=== PATIENT | male | born 1940 | race Caucasian/White ===

== ENCOUNTER 2018-12-06 02:53 | Inpatient (IN) | payer OTHER ==
[2018-12-06] MEDS: ALBUTEROL 0.083% (NEB) 2.5 MG/3 ML AMP INH (03:23)
[2018-12-06 03:57] LABS: ADD MAN DIFF? NO
[2018-12-06 03:59] LABS: WHITE BLOOD COUNT 7.8 10^3/ul (4.8-10.8)
[2018-12-06 03:59] LABS: BASOPHILS % 0.1 % (0.0-2.0); EOSINOPHILS # 0.1 10^3/ul (0.0-0.5); EOSINOPHILS % 1.5 % (0.0-7.0); HEMATOCRIT 28.5 % (42.0-52.0); HEMOGLOBIN 8.9 g/dl (14.0-18.0); LYMPHOCYTES # 0.8 10^3/ul (0.8-2.9); LYMPHOCYTES % 9.7 % (15.0-51.0); MEAN CORPUSCULAR HEMOGLOBIN 30.8 pg (29.0-33.0); MEAN CORPUSCULAR HGB CONC 31.2 g/dl (32.0-37.0); MEAN CORPUSCULAR VOLUME 98.6 fl (82.0-101.0); MONOCYTE # 0.5 10^3/ul (0.3-0.9); MONOCYTES % 6.8 % (0.0-11.0); NEUTROPHIL # 6.3 10^3/ul (1.6-7.5); NEUTROPHILS % 80.9 % (39.0-77.0); PLATELET COUNT 198 10^3/UL (140-415); RED BLOOD COUNT 2.89 10^6/ul (4.70-6.10); RED CELL DISTRIBUTION WIDTH 18.8 % (11.5-14.5)
[2018-12-06 04:03] LABS: MODE NASAL CANNULA; MetHgb Venous 0.2 %; Sample Type Blood venous; Site VENOUS LINE; Venous COHb 1.5 %; Venous Fraction OxyHgb 59.8 %; Venous Oxygen Sat 60.8 mmHG (55.0-75.0); Venous Total Hemglobin 10.2 g/dl
[2018-12-06] MEDS: SOD CHLORIDE 0.9% 500 ML IV (04:12)
[2018-12-06 04:18] LABS: ALANINE AMINOTRANSFERASE 88 IU/L (13-69); ALBUMIN 3.3 g/dl (3.3-4.9); ALKALINE PHOSPHATASE 90 IU/L (42-121); ANION GAP 9 (5-13); ASPARTATE AMINO TRANSFERASE 38 IU/L (15-46); BILIRUBIN,INDIRECT 0.2 mg/dl (0-1.1); BILIRUBIN,TOTAL 0.2 mg/dl (0.2-1.3); BLOOD UREA NITROGEN 67 mg/dl (7-20); CALCIUM 8.8 mg/dl (8.4-10.2); CARBON DIOXIDE 29 mmol/L (21-31); CHLORIDE 100 mmol/L (97-110); CREATININE 8.48 mg/dl (0.61-1.24); GLUCOSE 100 mg/dl (70-220); SODIUM 138 mmol/L (135-144); TOTAL PROTEIN 7.4 g/dl (6.1-8.1)
[2018-12-06 04:20] LABS: PROTIME 13.3 Sec (11.9-14.9)
[2018-12-06 04:21] LABS: PARTIAL THROMBOPLASTIN TIME 33.3 Sec (23.0-35.0); POTASSIUM 6.3 mmol/L (3.5-5.1)
[2018-12-06 04:29] LABS: B-TYPE NATRIURETIC PEPTIDE 3600 PG/ML (0-450); TROPONIN-I 0.091 ng/ml (0.000-0.120)
[2018-12-06] MEDS: DEXTROSE 50% 50 ML SYRINGE IV ×2 (05:11→05:14)
[2018-12-06] MEDS: INSULIN REGULAR, HUMAN 100 UNIT/1 ML 3ML VIAL IVP (05:13)
[2018-12-06] MEDS: SODIUM POLYSTYRENE 15 GM KIT (POWDER + SORBITOL) PO (05:21)
[2018-12-06] MEDS ORDERED: ACETAMINOPHEN 325 MG TAB PO (06:30)
[2018-12-06] MEDS ORDERED: ONDANSETRON 4 MG INJ IV (06:30)
[2018-12-06] MEDS: POLYETHYLENE GLYCOL 17 GM PACKET PO (13:00)
[2018-12-06] MEDS ORDERED: HEPARIN 5,000 UNIT/0.5 ML VIAL SC ×2 (13:00→18:00)
[2018-12-06] MEDS: NA POLYST SULFON 15 GM/60 ML BTL PO (13:00)
[2018-12-06] MEDS: FINASTERIDE 5 MG TAB PO (13:30)
[2018-12-06] MEDS: SOD CHLORIDE 0.9% 1,000 ML IV ×2 (17:40→21:00)
[2018-12-06 17:45] LABS: ANION GAP 9 (5-13); BLOOD UREA NITROGEN 67 mg/dl (7-20); CALCIUM 8.8 mg/dl (8.4-10.2); CARBON DIOXIDE 27 mmol/L (21-31); CHLORIDE 101 mmol/L (97-110); CREATININE 8.69 mg/dl (0.61-1.24); GLUCOSE 91 mg/dl (70-220); SODIUM 137 mmol/L (135-144)
[2018-12-06 17:57] LABS: POTASSIUM 6.2 mmol/L (3.5-5.1)
[2018-12-06] MEDS: HEPARIN 5,000 UNIT/1 ML VIAL SC (19:25)
[2018-12-06 23:26] LABS: ADD UMIC YES; UR ASCORBIC ACID NEGATIVE (NEGATIVE); UR BILIRUBIN (Dip) NEGATIVE (NEGATIVE); UR BLOOD (Dip) 2+ mg/dL (NEGATIVE); UR CLARITY CLEAR (CLEAR); UR COLOR YELLOW (YELLOW); UR GLUCOSE (Dip) NEGATIVE (NEGATIVE); UR KETONES (Dip) NEGATIVE (NEGATIVE); UR LEUKOCYTE ESTERASE (Dip) NEGATIVE Leu/ul (NEGATIVE); UR NITRITE (Dip) NEGATIVE (NEGATIVE); UR RBC 36 /HPF (0-5); UR SPECIFIC GRAVITY (Dip) 1.009 (1.003-1.030); UR TOTAL PROTEIN (Dip) 1+ mg/dl (NEGATIVE); UR UROBILINOGEN (Dip) NEGATIVE (NEGATIVE); UR WBC 5 /HPF (0-5)
[2018-12-06 23:36] LABS: CREATININE,URINE RANDOM 60.73 mg/dl (20-370)
[2018-12-06 23:36] LABS: SODIUM,URINE RANDOM 66 mmol/L (30-90)
[2018-12-07] MEDS: GABAPENTIN 300 MG CAP PO ×3 (01:00→21:00)
[2018-12-07] MEDS: DOCUSATE SODIUM 100 MG CAP PO ×3 (01:00→21:00)
[2018-12-07] MEDS: SODIUM POLYSTYRENE 15 GM KIT (POWDER + SORBITOL) PO ×3 (01:00→14:53)
[2018-12-07] MEDS: TAMSULOSIN (SR) 0.4 MG CAP PO ×2 (01:01→21:00)
[2018-12-07] MEDS: MAGNESIUM OXIDE 400 MG TAB PO ×3 (01:01→21:00)
[2018-12-07] MEDS: HEPARIN 5,000 UNIT/1 ML VIAL SC ×4 (01:03→22:16)
[2018-12-07] MEDS: SOD CHLORIDE 0.9% 1,000 ML IV ×3 (04:50→22:04)
[2018-12-07 06:10] LABS: ADD MAN DIFF? NO
[2018-12-07 06:20] LABS: ABNORMAL IP MESSAGE 1; BASOPHILS % 0.4 % (0.0-2.0); EOSINOPHILS # 0.1 10^3/ul (0.0-0.5); EOSINOPHILS % 2.3 % (0.0-7.0); HEMATOCRIT 28.5 % (42.0-52.0); HEMOGLOBIN 8.7 g/dl (14.0-18.0); LYMPHOCYTES # 0.4 10^3/ul (0.8-2.9); LYMPHOCYTES % 7.8 % (15.0-51.0); MEAN CORPUSCULAR HEMOGLOBIN 30.7 pg (29.0-33.0); MEAN CORPUSCULAR HGB CONC 30.5 g/dl (32.0-37.0); MEAN CORPUSCULAR VOLUME 100.7 fl (82.0-101.0); MEAN PLATELET VOLUME 10.4 fl (7.4-10.4); MONOCYTE # 0.4 10^3/ul (0.3-0.9); MONOCYTES % 8.6 % (0.0-11.0); NEUTROPHIL # 4.1 10^3/ul (1.6-7.5); NEUTROPHILS % 79.5 % (39.0-77.0); PLATELET COUNT 224 10^3/UL (140-415); POSITIVE DIFF @See below; RED BLOOD COUNT 2.83 10^6/ul (4.70-6.10); RED CELL DISTRIBUTION WIDTH 19.1 % (11.5-14.5)
[2018-12-07 06:20] LABS: WHITE BLOOD COUNT 5.1 10^3/ul (4.8-10.8)
[2018-12-07 06:50] LABS: ANION GAP 8 (5-13); BLOOD UREA NITROGEN 57 mg/dl (7-20); CALCIUM 8.7 mg/dl (8.4-10.2); CARBON DIOXIDE 30 mmol/L (21-31); CHLORIDE 108 mmol/L (97-110); CREATININE 6.95 mg/dl (0.61-1.24); GLUCOSE 99 mg/dl (70-220); POTASSIUM 5.5 mmol/L (3.5-5.1); SODIUM 146 mmol/L (135-144)
[2018-12-07] MEDS: FINASTERIDE 5 MG TAB PO (09:00)
[2018-12-07] MEDS: ALBUTEROL/IPRATROPIUM (NEB) 3 ML AMP HHN ×3 (11:01→19:17)
[2018-12-07] MEDS: POLYETHYLENE GLYCOL 17 GM PACKET PO (13:00)
[2018-12-07 17:17] LABS: ANION GAP 8 (5-13); BLOOD UREA NITROGEN 50 mg/dl (7-20); CALCIUM 8.1 mg/dl (8.4-10.2); CARBON DIOXIDE 29 mmol/L (21-31); CHLORIDE 108 mmol/L (97-110); CREATININE 4.61 mg/dl (0.61-1.24); GLUCOSE 111 mg/dl (70-220); POTASSIUM 4.9 mmol/L (3.5-5.1); SODIUM 145 mmol/L (135-144)
[2018-12-08] MEDS: ALBUTEROL/IPRATROPIUM (NEB) 3 ML AMP HHN ×4 (02:26→22:03)
[2018-12-08 06:11] LABS: ADD MAN DIFF? NO
[2018-12-08 06:16] LABS: ABNORMAL IP MESSAGE 1; BASOPHILS % 0.2 % (0.0-2.0); EOSINOPHILS # 0.1 10^3/ul (0.0-0.5); EOSINOPHILS % 0.8 % (0.0-7.0); HEMATOCRIT 26.5 % (42.0-52.0); HEMOGLOBIN 8.1 g/dl (14.0-18.0); LYMPHOCYTES # 0.5 10^3/ul (0.8-2.9); LYMPHOCYTES % 6.4 % (15.0-51.0); MEAN CORPUSCULAR HEMOGLOBIN 30.9 pg (29.0-33.0); MEAN CORPUSCULAR HGB CONC 30.6 g/dl (32.0-37.0); MEAN CORPUSCULAR VOLUME 101.1 fl (82.0-101.0); MEAN PLATELET VOLUME 9.7 fl (7.4-10.4); MONOCYTE # 0.8 10^3/ul (0.3-0.9); MONOCYTES % 9.5 % (0.0-11.0); NEUTROPHIL # 6.8 10^3/ul (1.6-7.5); NEUTROPHILS % 82.1 % (39.0-77.0); PLATELET COUNT 209 10^3/UL (140-415); POSITIVE DIFF @See below; RED BLOOD COUNT 2.62 10^6/ul (4.70-6.10); RED CELL DISTRIBUTION WIDTH 19.2 % (11.5-14.5)
[2018-12-08 06:16] LABS: WHITE BLOOD COUNT 8.3 10^3/ul (4.8-10.8)
[2018-12-08] MEDS: HEPARIN 5,000 UNIT/1 ML VIAL SC ×2 (06:35→17:38)
[2018-12-08] MEDS: SOD CHLORIDE 0.9% 1,000 ML IV (06:39)
[2018-12-08 06:54] LABS: ANION GAP 6 (5-13); BLOOD UREA NITROGEN 36 mg/dl (7-20); CALCIUM 8.3 mg/dl (8.4-10.2); CARBON DIOXIDE 32 mmol/L (21-31); CHLORIDE 109 mmol/L (97-110); CREATININE 3.43 mg/dl (0.61-1.24); GLUCOSE 105 mg/dl (70-220); POTASSIUM 4.3 mmol/L (3.5-5.1); SODIUM 147 mmol/L (135-144)
[2018-12-08] MEDS: FINASTERIDE 5 MG TAB PO (09:00)
[2018-12-08] MEDS: GABAPENTIN 300 MG CAP PO ×3 (09:00→21:18)
[2018-12-08] MEDS: MAGNESIUM OXIDE 400 MG TAB PO ×3 (09:00→21:18)
[2018-12-08] MEDS: DOCUSATE SODIUM 100 MG CAP PO ×3 (09:00→21:18)
[2018-12-08 10:57] LABS: CHOLESTEROL 117 mg/dl (100-200)
[2018-12-08 10:57] LABS: HDL CHOLESTEROL 38 mg/dl (31-75); LDL CHOLESTEROL,CALCULATED 60 mg/dl; TRIGLYCERIDES 96 mg/dl (0-149)
[2018-12-08 11:08] LABS: HEMOGLOBIN A1C 5.6 % (0-5.9)
[2018-12-08] MEDS: METOPROLOL 25 MG TAB PO (11:13)
[2018-12-08] MEDS ORDERED: GLUCOSE GEL 15 GRAM TUBE BUCCAL (11:30)
[2018-12-08] MEDS ORDERED: GLUCOSE GEL 15 GRAM TUBE PO ×2 (11:30)
[2018-12-08] MEDS ORDERED: DEXTROSE 50% 50 ML SYRINGE IV ×2 (11:30)
[2018-12-08] MEDS ORDERED: GLUCAGON 1 MG INJ IM (11:30)
[2018-12-08] MEDS: ASPIRIN 81 MG TAB PO (11:30)
[2018-12-08] MEDS: INSULIN ASPART [NOVOLOG] 3 ML PEN SC ×3 (11:34→20:40)
[2018-12-08] MEDS: POLYETHYLENE GLYCOL 17 GM PACKET PO (13:24)
[2018-12-08 14:49] LABS: AMMONIA < 9 umol/l (9-30)
[2018-12-08] MEDS: DEXTROSE 5%-0.45% NACL 1,000 ML IV (15:02)
[2018-12-08 16:00] LABS: THYROID STIMULATING HORMONE 0.938 MIU/L (0.465-4.680)
[2018-12-08 17:32] LABS: FOLATE 3.3 ng/ml (2.8-20.0)
[2018-12-08] MEDS: ACCU-CHEK XX (20:40)
[2018-12-08] MEDS: ATORVASTATIN 80 MG TAB PO ×2 (21:00→21:18)
[2018-12-08] MEDS: TAMSULOSIN (SR) 0.4 MG CAP PO ×2 (21:00→21:18)
[2018-12-09] MEDS: ALBUTEROL/IPRATROPIUM (NEB) 3 ML AMP HHN ×4 (02:45→20:20)
[2018-12-09] MEDS: DEXTROSE 5%-0.45% NACL 1,000 ML IV ×2 (02:50→08:46)
[2018-12-09] MEDS: HEPARIN 5,000 UNIT/1 ML VIAL SC ×2 (05:59→17:36)
[2018-12-09 06:01] LABS: ADD MAN DIFF? NO
[2018-12-09 06:12] LABS: WHITE BLOOD COUNT 6.1 10^3/ul (4.8-10.8)
[2018-12-09 06:12] LABS: BASOPHILS % 0.3 % (0.0-2.0); EOSINOPHILS # 0.2 10^3/ul (0.0-0.5); EOSINOPHILS % 2.6 % (0.0-7.0); HEMOGLOBIN 7.7 g/dl (14.0-18.0); LYMPHOCYTES # 0.8 10^3/ul (0.8-2.9); LYMPHOCYTES % 13.2 % (15.0-51.0); MEAN CORPUSCULAR HEMOGLOBIN 30.3 pg (29.0-33.0); MEAN CORPUSCULAR HGB CONC 30.8 g/dl (32.0-37.0); MEAN CORPUSCULAR VOLUME 98.4 fl (82.0-101.0); MEAN PLATELET VOLUME 9.9 fl (7.4-10.4); MONOCYTE # 0.7 10^3/ul (0.3-0.9); MONOCYTES % 11.9 % (0.0-11.0); NEUTROPHIL # 4.2 10^3/ul (1.6-7.5); NEUTROPHILS % 67.6 % (39.0-77.0); PLATELET COUNT 219 10^3/UL (140-415); RED BLOOD COUNT 2.54 10^6/ul (4.70-6.10); RED CELL DISTRIBUTION WIDTH 18.8 % (11.5-14.5)
[2018-12-09 06:32] LABS: ANION GAP 4 (5-13); BLOOD UREA NITROGEN 27 mg/dl (7-20); CALCIUM 8.5 mg/dl (8.4-10.2); CARBON DIOXIDE 33 mmol/L (21-31); CHLORIDE 105 mmol/L (97-110); GLUCOSE 115 mg/dl (70-220); MAGNESIUM 2.2 mg/dl (1.7-2.5); POTASSIUM 3.4 mmol/L (3.5-5.1); SODIUM 142 mmol/L (135-144)
[2018-12-09] MEDS: INSULIN ASPART [NOVOLOG] 3 ML PEN SC ×4 (08:00→21:00)
[2018-12-09] MEDS: MAGNESIUM OXIDE 400 MG TAB PO ×2 (08:45→21:45)
[2018-12-09] MEDS: GABAPENTIN 300 MG CAP PO ×2 (08:45→21:45)
[2018-12-09] MEDS: METOPROLOL 25 MG TAB PO ×2 (08:45→22:18)
[2018-12-09] MEDS: FINASTERIDE 5 MG TAB PO (08:45)
[2018-12-09] MEDS: ASPIRIN 81 MG TAB PO (08:46)
[2018-12-09] MEDS: DOCUSATE SODIUM 100 MG CAP PO ×2 (08:46→21:45)
[2018-12-09] MEDS: CEFEPIME 1GM/50 ML (PMX) 50 ML IVPB (10:33)
[2018-12-09 11:56] LABS: IRON 39 ug/dl (35-150)
[2018-12-09 12:05] LABS: % IRON SATURATION 23 % SAT (22-52); TOTAL IRON BINDING CAPACITY 168 ug/dl (241-421)
[2018-12-09] MEDS: POTASSIUM CHLORIDE (SR) 20 MEQ TAB PO (14:45)
[2018-12-09] MEDS: POLYETHYLENE GLYCOL 17 GM PACKET PO (14:46)
[2018-12-09] MEDS: hydrALAzine 20 MG INJ IV (15:16)
[2018-12-09] MEDS: TAMSULOSIN (SR) 0.4 MG CAP PO (21:45)
[2018-12-09] MEDS: NIFEdipine (XL) 30 MG TAB PO (21:45)
[2018-12-09] MEDS: ATORVASTATIN 80 MG TAB PO (21:45)
[2018-12-09] MEDS: ACCU-CHEK XX (22:18)
[2018-12-10] MEDS: DEXTROSE 5%-0.45% NACL 1,000 ML IV (01:24)
[2018-12-10] MEDS: ALBUTEROL/IPRATROPIUM (NEB) 3 ML AMP HHN ×4 (02:13→19:39)
[2018-12-10] MEDS: HEPARIN 5,000 UNIT/1 ML VIAL SC ×2 (05:44→17:33)
[2018-12-10 06:05] LABS: ADD MAN DIFF? NO
[2018-12-10 06:08] LABS: WHITE BLOOD COUNT 7.2 10^3/ul (4.8-10.8)
[2018-12-10 06:08] LABS: ABNORMAL IP MESSAGE 1; BASOPHIL # 0.1 10^3/ul (0.0-0.1); EOSINOPHILS # 0.2 10^3/ul (0.0-0.5); EOSINOPHILS % 2.6 % (0.0-7.0); HEMATOCRIT 27.5 % (42.0-52.0); HEMOGLOBIN 8.6 g/dl (14.0-18.0); LYMPHOCYTES # 0.9 10^3/ul (0.8-2.9); LYMPHOCYTES % 12.3 % (15.0-51.0); MEAN CORPUSCULAR HGB CONC 31.3 g/dl (32.0-37.0); MEAN CORPUSCULAR VOLUME 99.3 fl (82.0-101.0); MEAN PLATELET VOLUME 9.8 fl (7.4-10.4); MONOCYTE # 0.8 10^3/ul (0.3-0.9); MONOCYTES % 11.4 % (0.0-11.0); NEUTROPHIL # 4.8 10^3/ul (1.6-7.5); NEUTROPHILS % 66.6 % (39.0-77.0); PLATELET COUNT 250 10^3/UL (140-415); POSITIVE DIFF @See below; RED BLOOD COUNT 2.77 10^6/ul (4.70-6.10); RED CELL DISTRIBUTION WIDTH 18.4 % (11.5-14.5)
[2018-12-10 06:46] LABS: ANION GAP 6 (5-13); BLOOD UREA NITROGEN 20 mg/dl (7-20); CALCIUM 8.8 mg/dl (8.4-10.2); CARBON DIOXIDE 31 mmol/L (21-31); CHLORIDE 104 mmol/L (97-110); CREATININE 1.66 mg/dl (0.61-1.24); GLUCOSE 117 mg/dl (70-220); POTASSIUM 3.6 mmol/L (3.5-5.1); SODIUM 141 mmol/L (135-144)
[2018-12-10] MEDS: INSULIN ASPART [NOVOLOG] 3 ML PEN SC ×4 (07:47→20:39)
[2018-12-10] MEDS: FINASTERIDE 5 MG TAB PO (09:03)
[2018-12-10] MEDS: DOCUSATE SODIUM 100 MG CAP PO ×2 (09:03→20:23)
[2018-12-10] MEDS: ASPIRIN 81 MG TAB PO (09:04)
[2018-12-10] MEDS: NIFEdipine (XL) 30 MG TAB PO (09:04)
[2018-12-10] MEDS: MAGNESIUM OXIDE 400 MG TAB PO ×2 (09:04→20:23)
[2018-12-10] MEDS: GABAPENTIN 300 MG CAP PO ×2 (09:04→20:23)
[2018-12-10 09:52] LABS: ADD UMIC YES; UR ASCORBIC ACID NEGATIVE (NEGATIVE); UR BILIRUBIN (Dip) NEGATIVE (NEGATIVE); UR BLOOD (Dip) 1+ mg/dL (NEGATIVE); UR CLARITY CLEAR (CLEAR); UR COLOR STRAW (YELLOW); UR GLUCOSE (Dip) NEGATIVE (NEGATIVE); UR KETONES (Dip) NEGATIVE (NEGATIVE); UR LEUKOCYTE ESTERASE (Dip) NEGATIVE Leu/ul (NEGATIVE); UR NITRITE (Dip) NEGATIVE (NEGATIVE); UR RBC 1 /HPF (0-5); UR SPECIFIC GRAVITY (Dip) 1.008 (1.003-1.030); UR TOTAL PROTEIN (Dip) NEGATIVE (NEGATIVE); UR UROBILINOGEN (Dip) NEGATIVE (NEGATIVE); UR WBC 4 /HPF (0-5)
[2018-12-10 10:47] LABS: ANISOCYTOSIS 1+ (0-0); BAND NEUTROPHILS #M 0.1 10^3/ul (0.0-0.6); BAND NEUTROPHILS % (M) 2 % (0-4); BURR CELLS 1+ (0-0); EOSINOPHILS % (M) 2 % (0-7); LYMPHOCYTES #M 0.5 10^3/ul (0.8-2.9); LYMPHOCYTES % (M) 8 % (15-51); METAMYELOCYTES %M 1 % (0-0); MONOCYTES % (M) 14 % (0-11); MYELOCYTES #M 0.2 10^3/ul (0.0-0.0); MYELOCYTES % (M) 4 % (0-0); PLATELET ESTIMATE NORMAL; POIKILOCYTOSIS 1+ (0-0); POLYCHROMASIA 1+ (0-0); REACTIVE LYMPHOCYTES #M 0.2 10^3/ul (0.0-0.0); REACTIVE LYMPHOCYTES% (M) 3 % (0-0); SEG NEUT #M 4.8 10^3/ul (1.6-7.5); SEGMENTED NEUTROPHILS (M) % 66 % (39-77); SMUDGE%M 5 % (0-0); SPHEROCYTES 1+ (0-0)
[2018-12-10] MEDS: CEFEPIME 1GM/50 ML (PMX) 50 ML IVPB (11:14)
[2018-12-10] MEDS: METOPROLOL 25 MG TAB PO (11:39)
[2018-12-10] MEDS: POLYETHYLENE GLYCOL 17 GM PACKET PO (13:00)
[2018-12-10] MEDS: TAMSULOSIN (SR) 0.4 MG CAP PO (20:23)
[2018-12-10] MEDS: ATORVASTATIN 80 MG TAB PO (20:23)
[2018-12-11] MEDS: METOPROLOL 25 MG TAB PO ×2 (01:18→10:34)
[2018-12-11] MEDS: ALBUTEROL/IPRATROPIUM (NEB) 3 ML AMP HHN ×3 (01:28→14:24)
[2018-12-11] MEDS: ACCU-CHEK XX (02:00)
[2018-12-11] MEDS: HEPARIN 5,000 UNIT/1 ML VIAL SC (06:16)
[2018-12-11 07:25] LABS: ANION GAP 3 (5-13); BLOOD UREA NITROGEN 14 mg/dl (7-20); CALCIUM 8.7 mg/dl (8.4-10.2); CARBON DIOXIDE 36 mmol/L (21-31); CHLORIDE 103 mmol/L (97-110); CREATININE 1.45 mg/dl (0.61-1.24); GLUCOSE 109 mg/dl (70-220); POTASSIUM 3.4 mmol/L (3.5-5.1); SODIUM 142 mmol/L (135-144)
[2018-12-11] MEDS: INSULIN ASPART [NOVOLOG] 3 ML PEN SC ×2 (07:46→12:00)
[2018-12-11] MEDS: MAGNESIUM OXIDE 400 MG TAB PO (08:58)
[2018-12-11] MEDS: FINASTERIDE 5 MG TAB PO (08:58)
[2018-12-11] MEDS: DOCUSATE SODIUM 100 MG CAP PO (08:58)
[2018-12-11] MEDS: ASPIRIN 81 MG TAB PO (08:58)
[2018-12-11] MEDS: NIFEdipine (XL) 30 MG TAB PO (08:58)
[2018-12-11] MEDS: GABAPENTIN 300 MG CAP PO (09:02)
[2018-12-11] MEDS: DEXTROSE 5%-0.45% NACL 1,000 ML IV (09:04)
[2018-12-11] MEDS: CEFEPIME 1GM/50 ML (PMX) 50 ML IVPB (10:32)
[2018-12-11] MEDS: POLYETHYLENE GLYCOL 17 GM PACKET PO (13:00)
[2018-12-11] MEDS: POTASSIUM CHLORIDE (SR) 20 MEQ TAB PO (15:30)
== END 2018-12-11 16:00 | DRG 682 ==
LOC: E/R 02:53 → 6WM 06:31
DX: N17.9 Acute kidney failure, unspecified (principal); G93.41 Metabolic encephalopathy; N39.0 Urinary tract infection, site not specified; E87.0 Hyperosmolality and hypernatremia; N13.30 Unspecified hydronephrosis; E87.5 Hyperkalemia; J44.9 Chronic obstructive pulmonary disease, unspecified; R33.9 Retention of urine, unspecified; R13.10 Dysphagia, unspecified; I10 Essential (primary) hypertension; E66.9 Obesity, unspecified; Z68.32 Body mass index [BMI] 32.0-32.9, adult; E86.0 Dehydration; E11.9 Type 2 diabetes mellitus without complications; R41.0 Disorientation, unspecified; R29.810 Facial weakness; R53.1 Weakness; N40.0 Benign prostatic hyperplasia without lower urinary tract symptoms
CPT/HCPCS: 36415; 70450; 70551; 71045; 76775; 80048; 80053; 80061; 81001; 81003; 82140; 82607; 82746; 82803; 82962; 83036; 83540; 83605; 83735; 83880; 84155; 84300; 84443; 84484; 85025; 85610; 85730; 87086; 92526; 92610; 93005; 93306; 93880; 94640; 94664; 96374; 96375; 97110; 97163; 97530; 99285-25